=== PATIENT | female | born 1990 | race Caucasian/White ===

== ENCOUNTER 2017-09-22 07:00 | Emergency (ER) | payer BC ==
[~2017-09-22] VITALS: Ht 152.4 cm; Wt 53.0 kg
[2017-09-22 07:01] VITALS: Ht 152.4 cm; Wt 53.0 kg
[2017-09-22] MEDS ORDERED: DIPHENHYDRAMINE 25 MG CAP PO ONE (07:30)
[2017-09-22] MEDS ORDERED: predniSONE 10 MG TAB PO ONE (07:30)
[2017-09-22] MEDS ORDERED: BEN25 PO (08:01)
[2017-09-22] MEDS ORDERED: PRED20TA PO (08:01)
--- NOTE | 2017-09-22 08:17 | ERD ---
ER Documentation Chief Complaint Chief Complaint swollen lips, hives ( allergic reaction) HPI This is a 27-year-old female presenting to the emergency department for allergic reaction. Patient states she is having generalized hives on and off 4 days. Patient has been taking Benadryl which improved symptoms however today she developed mild swelling of lips. Patient denies any difficulty breathing, shortness of breath or chest pain. No wheezing. No difficulty swallowing or drooling. Patient was at work and was told by her boss to go to the ER for evaluation. ROS All systems reviewed and are negative except as per history of present illness. Medications Home Meds Active Scripts Diphenhydramine Hcl* (Benadryl*) 25 Mg Cap, 25 MG PO Q6, #30 CAP Prov:KRANTHI GUEVARA NP 09/22/17 Prednisone* (Prednisone*) 20 Mg Tab, 40 MG PO DAILY for 4 Days, TAB Prov:KRANTHI GUEVARA NP 09/22/17 PMhx/Soc Hx Alcohol Use: Yes (occ) Hx Substance Use: No Hx Tobacco Use: No Smoking Status: Never smoker Physical Exam Vitals Vital Signs Date Time Temp Pulse Resp B/P Pulse Ox O2 Delivery O2 Flow Rate FiO2 09/22/17 07:01 98.6 79 19 122/71 100 Physical Exam Const: No acute distress, alert Head: Atraumatic Eyes: Normal Conjunctiva ENT: Normal External Ears, Nose and Mouth. No angioedema. Neck: Full range of motion..~ No meningismus. Resp: Clear to auscultation bilaterally. No wheezing, rhonchi or crackles. No stridor or labored breathing. No intercostal retractions. Cardio: Regular rate and rhythm, no murmurs Abd: Soft, non tender, non distended. Normal bowel sounds Skin: Generalized hives. Back: No midline or flank tenderness Ext: No cyanosis, or edema Neur: Awake and alert Psych: Normal Mood and Affect Results 24 hrs Current Medications Medications (Trade) Dose Ordered Sig/Elsa Route PRN Reason Start Time Stop Time Status Last Admin Dose Admin Diphenhydramine HCl (Benadryl) 25 mg ONCE ONCE PO 09/22/17 07:30 09/22/17 07:31 DC 09/22/17 07:22 Prednisone (Prednisone) 30 mg ONCE ONCE PO 09/22/17 07:30 09/22/17 07:31 DC 09/22/17 07:23 Procedures/MDM MDM: This is a 27-year-old female presenting to emergency department for allergic reaction. Patient has generalized hives and states she has been having this on and off for the past 4 days. Patient has been taking Benadryl at home with some relief of symptoms. No signs or symptoms of respiratory distress. No wheezing. No labored breathing or stridor. No fevers or chills. Patient is afebrile and vital signs are stable throughout ED visit. Patient is talking in complete sentences. No angioedema. Patient given prednisone and Benadryl while in the ED. Upon reassessment, hives had begun to diminish. Patient states itching has improved. No swelling noted. Patient diagnosis allergic reaction. Low suspicion for anaphylactic reaction. Patient is appropriate for outpatient management will be given prescription for prednisone and Benadryl. Instructed patient to follow-up with primary care provider as needed in the next week. Return to ED for any high fever, chest pain, difficulty breathing, shortness breath, wheezing, vomiting, diarrhea, abdominal pain or any new or worsening symptoms. Patient verbalizes understanding. All questions answered at discharge. Disclaimer: Inadvertent spelling and grammatical errors are likely due to EHR/ dictation software use and do not reflect on the overall quality of patient care. Also, please note that the electronic time recorded on this note does not necessarily reflect the actual time of the patient encounter. Departure Diagnosis: Primary Impression: Allergic reaction Encounter type: initial encounter Qualified Code: T78.40XA - Allergic reaction, initial encounter Condition: Stable Patient Instructions: Allergic Reaction, Other (General) Referrals: [facility] YOU HAVE RECEIVED A MEDICAL SCREENING EXAM AND THE RESULTS INDICATE THAT YOU DO NOT HAVE A CONDITION THAT REQUIRES URGENT TREATMENT IN THE EMERGENCY DEPARTMENT. FURTHER EVALUATION AND TREATMENT OF YOUR CONDITION CAN WAIT UNTIL YOU ARE SEEN IN YOUR DOCTORS OFFICE WITHIN THE NEXT 1-2 DAYS. IT IS YOUR RESPONSIBILITY TO MAKE AN APPOINTMENT FOR FOLOW-UP CARE. IF YOU HAVE A PRIMARY DOCTOR --you should call your primary doctor and schedule an appointment IF YOU DO NOT HAVE A PRIMARY DOCTOR YOU CAN CALL OUR PHYSICIAN REFERRAL HOTLINE AT IF YOU CAN NOT AFFORD TO SEE A PHYSICIAN YOU CAN CHOSE FROM THE FOLLOWING [facility] [address] [facility] [address] [facility] [facility] [address] [facility] [address] [facility] [address] [facility]. [facility] [address] [facility]. [facility] YOU HAVE RECEIVED A MEDICAL SCREENING EXAM AND THE RESULTS INDICATE THAT YOU DO NOT HAVE A CONDITION THAT REQUIRES URGENT TREATMENT IN THE EMERGENCY DEPARTMENT. FURTHER EVALUATION AND TREATMENT OF YOUR CONDITION CAN WAIT UNTIL YOU ARE SEEN IN YOUR DOCTORS OFFICE WITHIN THE NEXT 1-2 DAYS. IT IS YOUR RESPONSIBILITY TO MAKE AN APPOINTMENT FOR FOLOW-UP CARE. IF YOU HAVE A PRIMARY DOCTOR --you should call your primary doctor and schedule and appointment IF YOU DO NOT HAVE A PRIMARY DOCTOR YOU CAN CALL OUR PHYSICIAN REFERRAL HOTLINE AT . 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 Return to ED for any high fever, chest pain, difficulty breathing, shortness breath, wheezing, vomiting, diarrhea, abdominal pain or any new or worsening symptoms. KRANTHI GUEVARA NP Sep 22, 2017 08:17
== END 2017-09-22 08:05 | disposition home or self-care (01) ==
LOC: FTE 07:00
DX: L50.9 Urticaria, unspecified (principal)
CPT/HCPCS: 99283; J7512